=== PATIENT | female | born 1990 | race Caucasian/White ===

== ENCOUNTER 2023-03-28 11:00 | Outpatient (RCR) | payer BC, SELFPAY ==
[2023-03-24 15:11] LABS: Albumin* 4.2 g/dL (3.3-5.0); Chloride* 108 mmol/L (96-114); Potassium* 3.9 mmol/L (3.6-5.1); Sodium* 140 mmol/L (135-149)
[2023-03-24 15:13] LABS: Anion Gap 6 mEq/L (7-15); Bilirubin Total* 0.2 mg/dL (0.1-1.5); Carbon Dioxide* 26 mmol/L (20-32); Creatinine* 0.6 mg/dL (0.5-1.5); Estimated Glomerular Filt Rate 123 ml/min
[2023-03-24 15:14] LABS: Alanine Aminotransferase* 357 U/L (4-35); Alkaline Phosphatase* 401 U/L (40-150); Aspartate Amino Transferase* 185 U/L (12-35); Blood Urea Nitrogen* 10 mg/dL (5-24); Calcium* 9.2 mg/dL (8.4-10.6); Glucose* 139 mg/dL (60-115); Total Protein* 7.4 g/dL (6.0-8.3)
[2023-03-24] MEDS: HEPARIN 500 UNIT/5 ML SYRINGE IVF (16:51)
[2023-03-24] MEDS: SODIUM CHLORIDE 0.9 % (FLUSH) 10 ML SYRINGE IVF (16:52)
--- NOTE | 2023-03-24 17:06 | ONC.NURNOTE ---
Abnormal LFT labs called and faxed to Dr. Trung Carranza Nurse at [facility]. [phone]. fax [phone].
[2023-03-25 13:24] LABS: Albumin* 4.4 g/dL (3.3-5.0)
[2023-03-25 13:26] LABS: Bilirubin Direct* 0.1 mg/dL (0.0-0.5); Bilirubin Total* 0.3 mg/dL (0.1-1.5); Total Protein* 7.7 g/dL (6.0-8.3)
[2023-03-25 13:27] LABS: Alanine Aminotransferase* 526 U/L (4-35); Alkaline Phosphatase* 495 U/L (40-150); Aspartate Amino Transferase* 414 U/L (12-35); Creatine Kinase* 52 U/L (41-117)
--- NOTE | 2023-03-28 08:23 | ONC.NURNOTE ---
Elevated LFTS 03/25/23 Liver panel faxed on Tuesday03/25/[address] Nino and Sheila Newton. Sent results via [facility] Email this am.
[2023-03-28 12:16] LABS: Albumin* 4.1 g/dL (3.3-5.0)
[2023-03-28 12:19] LABS: Alkaline Phosphatase* 313 U/L (40-150); Aspartate Amino Transferase* 67 U/L (12-35); Bilirubin Total* 0.2 mg/dL (0.1-1.5); Total Protein* 7.2 g/dL (6.0-8.3)
[2023-03-28 12:20] LABS: Alanine Aminotransferase* 248 U/L (4-35)
== END 2023-09-20 23:59 | disposition home or self-care (01) ==
LOC: CCIC 11:00
PROVIDERS: Physician Assistant; Visit Provider Clinical Nurse Specialist
DX: R79.89 Other specified abnormal findings of blood chemistry (principal)
CPT/HCPCS: 36415; 36591; 80053; 80076; 82550; J1642